=== PATIENT | male | born 1985 | race Hispanic/Latino ===

== ENCOUNTER 2024-11-27 12:19 | Emergency (ER) | payer SELFPAY ==
[~2024-11-27] VITALS: Ht 165.1 cm; Wt 83.5 kg
[2024-11-27] MEDS ORDERED: SODIUM CHLORIDE 0.9% 1000ML 1,000 ML IV SCH (13:00)
[2024-11-27 13:30] LABS: BASOPHILS % 0.4 % (0.0-1.0); EOSINOPHILS % 1.1 % (0.0-6.0); LYMPHOCYTES % 29.1 % (18.0-39.1); MONOCYTES % 3.7 % (4.4-11.3); NEUTROPHILS % 65.5 % (38.7-80.0); RED CELL DISTRIBUTION WIDTH 13.8 % (11.7-14.4)
[2024-11-27 13:57] LABS: EST GLOMERULAR FILTRATION RATE 71.0 ML/MIN (>=60)
[2024-11-27] MEDS: INSULIN REGULAR, HUMAN 100 UNIT/1 ML IV ONE (14:49)
[2024-11-27] MEDS: SODIUM CHLORIDE 0.9% 1000ML 1,000 ML IV SCH (14:50)
[2024-11-27 16:40] VITALS: PULSE 74; RESP 18; TEMP 98.2; O2SAT 99
== END 2024-11-27 16:44 | disposition home or self-care (01) ==
LOC: ER 12:55
DX: R07.89 Other chest pain (principal); G89.29 Other chronic pain; E11.65 Type 2 diabetes mellitus with hyperglycemia
CPT/HCPCS: 36415; 71045; 80053; 82948; 83690; 84484; 85025; 93005; 99284; J7030